=== PATIENT | male | born 1995 | race African-American/Black ===

== ENCOUNTER 2023-11-29 08:54 | Emergency (ER) | payer SELFPAY ==
[~2023-11-29] VITALS: Ht 167.6 cm; Wt 66.0 kg
[2023-11-29 08:58] VITALS: TEMP 98; O2SAT 99
[2023-11-29 09:15] VITALS: BP 112/64; PULSE 63; RESP 16
[2023-11-29] MEDS: ONDANSETRON 4MG ODT PO STA (09:15)
[2023-11-29] MEDS: KETOROLAC 30MG/ML VIAL IM STA (09:15)
[2023-11-29] MEDS: FAMOTIDINE 20MG TABLET PO ONE (09:15)
== END 2023-11-29 12:13 | disposition home or self-care (01) ==
LOC: ER 08:54
DX: R10.9 Unspecified abdominal pain (principal); R11.2 Nausea with vomiting, unspecified
CPT/HCPCS: 99284; 74176; Q0162; J1885